=== PATIENT | male | born 1980 | race Caucasian/White ===

== ENCOUNTER 2018-04-21 15:12 | Emergency (ER) | payer OTHER ==
[~2018-04-21] VITALS: Ht 175.3 cm; Wt 86.2 kg
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
[2018-04-21 15:41] VITALS: BP 131/80
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
[2018-04-21 16:44] VITALS: BP 131/80
== END 2018-04-21 16:46 | disposition home or self-care (01) ==
LOC: ER 15:12
DX: Z04.1 Encounter for examination and observation following transport accident (principal); K21.9 Gastro-esophageal reflux disease without esophagitis; Z88.2 Allergy status to sulfonamides; V89.2XXA Person injured in unspecified motor-vehicle accident, traffic, initial encounter; Y93.89 Activity, other specified; Y92.410 Unspecified street and highway as the place of occurrence of the external cause; Y99.8 Other external cause status
CPT/HCPCS: 99281